=== PATIENT | male | born 1940 | race Caucasian/White ===

== ENCOUNTER 2022-08-01 09:53 | Emergency (ER) | payer MEDICARE ==
[2022-08-01 09:59] VITALS: TEMP 97.9
--- NOTE | 2022-08-01 10:10 | ED ---
General Adult HPI - General Chief complaint: Recheck/Abnormal Lab/Rx Stated complaint: Recheck Time Seen by Provider: 08/01/22 09:54 Source: patient, RN notes reviewed, old records reviewed Mode of arrival: ambulatory Limitations: no limitations - History of Present Illness Initial comments: 82-year-old male presents for evaluation of abnormal outpatient lab testing. Patient was told by the [facility] that his kidneys were failing and that he should present to the emergency department. He states this has been a known issue. He denies any specific complaints but states he has had some trouble urinating in the evenings and throughout the night. He denies vomiting. He's been eating and drinking well. No abdominal pain. No chest pain or dyspnea. - Related Data Allergies Allergy/AdvReac Type Severity Reaction Status Date / Time No Known Allergies Allergy Verified 08/01/22 09:59 Review of Systems ROS Statement: Those systems with pertinent positive or pertinent negative responses have been documented in the HPI. ROS Other: All systems not noted in ROS Statement are negative. Past Medical History Past Medical History: Prostate Disorder History of Any Multi-Drug Resistant Organisms: None Reported Past Surgical History: No Surgical Hx Reported Past Psychological History: No Psychological Hx Reported Smoking Status: Never smoker Past Alcohol Use History: Occasional Past Drug Use History: None Reported General Exam Limitations: no limitations General appearance: alert, in no apparent distress Head exam: Present: atraumatic, normocephalic Eye exam: Present: normal appearance, PERRL ENT exam: Present: normal exam Neck exam: Present: normal inspection. Absent: tenderness, meningismus Respiratory exam: Present: normal lung sounds bilaterally. Absent: respiratory distress, wheezes Cardiovascular Exam: Present: regular rate, normal rhythm GI/Abdominal exam: Present: soft. Absent: distended, tenderness, guarding Extremities exam: Present: normal inspection, normal capillary refill. Absent: pedal edema Neurological exam: Present: alert, oriented X3, CN II-XII intact. Absent: motor sensory deficit Psychiatric exam: Present: normal affect, normal mood Skin exam: Present: warm, dry, intact. Absent: cyanosis, diaphoretic Course Vital Signs 08/01/22 09:55 Temperature 97.9 F Pulse Rate 76 Respiratory 20 Rate Blood Pressure 126/65 O2 Sat by Pulse 98 Oximetry Medical Decision Making - Medical Decision Making Was pt. sent in by a medical professional or institution (Dr., PA, HALL DIRECTOR, urgent care, hospital, or senior care...) When possible be specific @ -Records obtained from the [place] Did you speak to anyone other than the patient for history (EMS, parent, family, police, friend...)? What history was obtained from this source @ -No Did you review nursing and triage notes (agree or disagree)? Why? @ -I reviewed and agree with nursing and triage notes Were old charts reviewed (outside hosp., previous admission, EMS record, old EKG, old radiological studies, urgent care reports/EKG's, senior care records)? Report findings @ -No old charts were reviewed Differential Diagnosis (chest pain, altered mental status, abdominal pain women, abdominal pain men, vaginal bleeding, weakness, fever, dyspnea, syncope, headache, dizziness, GI bleed, back pain, seizure, CVA, palpatations, mental health, musculoskeletal)? @ Renal failure, urinary obstruction, prostatic hypertrophy, prostate cancer EKG interpreted by me (3pts min.). @ -As above X-rays interpreted by me (1pt min.). @ -None done CT interpreted by me (1pt min.). @ -None done U/S interpreted by me (1pt. min.). @ -None done What testing was considered but not performed or refused? (CT, X-rays, U/S, labs)? Why? @ -None What meds were considered but not given or refused? Why? @ -None Did you discuss the management of the patient with other professionals (professionals i.e. FREDIS Barber, HALL DIRECTOR, lab, RT, psych nurse, social science instructor, machine sneller, teacher, public safety officer, case management assistant)? Give summary @ -No Was smoking cessation discussed for >3mins.? @ -No Was critical care preformed (if so, how long)? @ -No Were there social determinants of health that impacted care today? How? (Homelessness, low income, unemployed, alcoholism, drug addiction, transportation, low edu. Level, literacy, decrease access to med. care, snf, rehab)? @ -No Was there de-escalation of care discussed even if they declined (Discuss DNR or withdrawal of care, Hospice)? DNR status @ -No What co-morbidities impacted this encounter? (DM, HTN, Smoking, COPD, CAD, Cancer, CVA, ARF, Chemo, Hep., AIDS, mental health diagnosis, sleep apnea, morbid obesity)? @ Chronic kidney disease Was patient admitted / discharged? Hospital course, mention meds given and route, prescriptions, significant lab abnormalities, going to OR and other pertinent info. @ 82-year-old male presenting with elevated creatinine and BUN. Patient states he is also told that he may have a prostate issue. Bladder scan revealed approximately 1 L. Laboratory tests were repeated which did show an elevated BUN/creatinine with a creatinine of 3.2. I reviewed the previous lab testing from the [place] and this has been increasing over the past 6 months. Patient is eating and drinking well. He does not appear dehydrated. Additionally he has a anemia with a hemoglobin of 9.9. After Pina catheter insertion he has approximately 1 L of urinary output. He should have repeat laboratory testing performed within the next 1-2 weeks and he is given urology follow-up for urinary retention and concern for prostate issues. Undiagnosed new problem with uncertain prognosis? @ -No Drug Therapy requiring intensive monitoring for toxicity (Heparin, Nitro, Insulin, Cardizem)? @ -No Were any procedures done? @ -No Diagnosis/symptom? @ Urinary retention, chronic kidney disease Acute, or Chronic, or Acute on Chronic? @ -Chronic Uncomplicated (without systemic symptoms) or Complicated (systemic symptoms)? @ -Complicated Side effects of treatment? @ -No Exacerbation, Progression, or Severe Exacerbation? @ -No Poses a threat to life or bodily function? How? (Chest pain, [place], [place], pneumonia, PE, COPD, DKA, ARF, appy, cholecystitis, CVA, Diverticulitis, Homicidal, Kelsey cidal, threat to staff... and all critical care pts) @ -No - Lab Data Result diagrams: 08/01/22 10:11 08/01/22 10:11 Lab Results 08/01/22 08/01/22 Range/Units 10:11 10:11 WBC 4.5 (3.8-10.6) k/uL RBC 2.85 L (4.30-5.90) m/uL Hgb 9.7 L (13.0-17.5) gm/dL Hct 28.0 L (39.0-53.0) % MCV 98.4 (80.0-100.0) fL MCH 33.9 (25.0-35.0) pg MCHC 34.4 (31.0-37.0) g/dL RDW 12.4 (11.5-15.5) % Plt Count 148 L (150-450) k/uL MPV 7.6 Neutrophils % 72 % Lymphocytes % 18 % Monocytes % 6 % Eosinophils % 2 % Basophils % 0 % Neutrophils # 3.2 (1.3-7.7) k/uL Lymphocytes # 0.8 L (1.0-4.8) k/uL Monocytes # 0.3 (0-1.0) k/uL Eosinophils # 0.1 (0-0.7) k/uL Basophils # 0.0 (0-0.2) k/uL Sodium 141 (137-145) mmol/L Potassium 5.0 (3.5-5.1) mmol/L Chloride 107 (98-107) mmol/L Carbon Dioxide 24 (22-30) mmol/L Anion Gap 10 mmol/L BUN 45 H (9-20) mg/dL Creatinine 3.29 H (0.66-1.25) mg/dL Est GFR (CKD-EPI)AfAm 19 (>60 ml/min/1.73 sqM) Est GFR (CKD-EPI)NonAf 17 (>60 ml/min/1.73 sqM) Glucose 91 (74-99) mg/dL Calcium 9.1 (8.4-10.2) mg/dL Magnesium 2.7 H (1.6-2.3) mg/dL Total Bilirubin 0.5 (0.2-1.3) mg/dL AST 16 L (17-59) U/L ALT 12 (4-49) U/L Alkaline Phosphatase 47 (38-126) U/L Total Protein 7.2 (6.3-8.2) g/dL Albumin 4.3 (3.5-5.0) g/dL Disposition Clinical Impression: Urinary retention, Chronic kidney disease Disposition: HOME SELF-CARE Condition: Fair Instructions (If sedation given, give patient instructions): Urinary Retention in Men (ED), Chronic Kidney Disease (ED) Is patient prescribed a controlled substance at d/c from ED?: No Referrals: [facility],Clinic [Primary Care Provider] - 1-2 days Drew Bass MD [STAFF PHYSICIAN] - 1-2 days Time of Disposition: 12:02
[2022-08-01 10:51] LABS: Basophils % (A) 0 %; Eosinophils # (A) 0.1 k/uL (0-0.7); Eosinophils % (A) 2 %; HGB 9.7 gm/dL (13.0-17.5); Lymphocytes # (A) 0.8 k/uL (1.0-4.8); Lymphocytes % (A) 18 %; MCH 33.9 pg (25.0-35.0); MCHC 34.4 g/dL (31.0-37.0); MCV 98.4 fL (80.0-100.0); Mean Platelet Volume 7.6; Monocytes # (A) 0.3 k/uL (0-1.0); Monocytes % (A) 6 %; Neutrophils # (A) 3.2 k/uL (1.3-7.7); Neutrophils % (A) 72 %; Platelet Count 148 k/uL (150-450); RBC 2.85 m/uL (4.30-5.90); RDW 12.4 % (11.5-15.5); WBC 4.5 k/uL (3.8-10.6)
[2022-08-01 11:04] LABS: Albumin 4.3 g/dL (3.5-5.0); Calcium 9.1 mg/dL (8.4-10.2); Magnesium 2.7 mg/dL (1.6-2.3); Total Bilirubin 0.5 mg/dL (0.2-1.3); Total Protein 7.2 g/dL (6.3-8.2)
[2022-08-01] MEDS ORDERED: SODIUM CHLORIDE 0.9% 500 ML 500 ML IV ONE (11:20)
[2022-08-01] MEDS ORDERED: LIDOCAINE 2% URO-JET JELLY 5 ML KIT URETHRAL ONE (11:39)
[2022-08-01 13:20] VITALS: BP 142/69; PULSE 72; RESP 18
== END 2022-08-01 13:20 | disposition home or self-care (01) ==
LOC: EC 09:53
DX: N39.0 Urinary tract infection, site not specified (principal); N18.9 Chronic kidney disease, unspecified
CPT/HCPCS: 36415; 51798; 80053; 83735; 85025; 96360; 99283

== ENCOUNTER → 2022-09-01 | Outpatient (CLI) | payer OTHER ==
--- NOTE | 2022-09-01 22:21 | MR ---
EXAMINATION TYPE: MR Prostate wo/w con DATE OF EXAM: 09/01/2022 9:09 AM COMPARISON: . CLINICAL INDICATION:Male, 82 years old with history of R97.20; PH, TECHNIQUE: Multi-planar, multi-sequence imaging of the pelvis is performed prior to and following the uncomplicated administration of bolus intravenous gadolinium. CONTRAST: 7 Gadavist Interpretive Criteria: PI-RADS v2.1 SERUM PSA: 17.15 on 02/17/2021 11.64 on 08/12/2020 12.22 on 01/20/2020 12. 09 on 01/21/2019 10.23 on 07/22/2018 8.5 on 01/16/2018. 6.25 on 07/23/2017 SURGICAL PATHOLOGY: No data available. FINDINGS: Prostatic dimensions: 6.3 x 7.4 x 5.7 cm. Ellipsoid Volume:139.14 (PSA density=0.12 ng/mL/mL) CENTRAL GLAND (Central and Transition Zones/CZ+TZ): * Focus of high DWI/low ADC signal corresponding low T2 signal within the right mid central gland ba se measuring 10 mm PI-RADS 4 * Additional lesion measuring 6 x 3 mm focus within the right peripheral zone anterior mid gland wit h low T2 high DWI and low ADC signal. PI-RADS 4 PERIPHERAL ZONE (PZ): Present due to central gland hypertrophy changes. No evidence of masslike abnormality, or localized p erfusional hypervascularity, to further suggest a focus of clinically significant prostate cancer. (P I-RADS 2) SEMINAL VESICLES (SV): Symmetric and unremarkable. PERIPROSTATIC TISSUES: Unremarkable. LYMPH NODES: No enlarged pelvic lymph node. REMAINING PELVIS: Trabeculated bladder wall likely secondary to chronic bladder outlet obstruction. Pina catheter in place. No abnormal free or organized intrapelvic fluid collection. No pathologic bowel dilation or mural thickening. OSSEOUS STRUCTURES: No suspicious osseous abnormality. Peripherally low T1 and low T2 signal central high T2 signal left pubic symphysis lesion could represent degenerative changes versus cyst. No abnormal postcontrast enh ancement. IMPRESSION: 1. BI-RADS 4 lesions in the right central gland base measuring up to 10 mm and mid gland measuring u p to 6 x 3 mm. 2. Substantial BPH, estimated gland volume 139.14 mL. 3. Circumferential bladder wall thickening likely secondary to chronic bladder obstruction.
== END | disposition home or self-care (01) ==
LOC: RADMRIMAIN 07:35
PROVIDERS: ATTEND Urology
DX: N40.0 Benign prostatic hyperplasia without lower urinary tract symptoms (principal); R97.20 Elevated prostate specific antigen [PSA]; R91.8 Other nonspecific abnormal finding of lung field
CPT/HCPCS: 72197; A9585

== ENCOUNTER → 2022-09-26 | Outpatient (CLI) | payer OTHER ==
[2022-09-26 16:52] LABS: Appearance,Urine Turbid (Clear); Bacteria,Urine 3+ (None Seen); Bilirubin,Urine Negative (Negative); Blood,Urine Moderate (Negative); Color,Urine Yellow (Yellow); Ketones,Urine Trace (Negative); Nitrite,Urine Positive (Negative); PH, Urine 5.5; Specific Gravity,Urine 1.018 (1.001-1.030); Urobilinogen,Urine 0.2
[2022-09-26 16:53] LABS: Basophils # (A) 0.04 X 10*3/uL (0.00-0.10); Basophils % (A) 0.7 %; Eosinophils # (A) 0.32 X 10*3/uL (0.04-0.35); Eosinophils % (A) 5.9 %; HCT 31.2 % (39.6-50.0); HGB 10.1 d/dL (12.0-15.0); Lymphocytes # (A) 1.08 X 10*3/uL (0.90-5.00); MCH 31.7 pg (27.0-32.0); MCHC 32.4 d/dL (32.0-37.0); MCV 97.8 FL (80.0-97.0); Mean Platelet Volume 12.7 FL (9.5-12.2); Monocytes # (A) 0.47 X 10*3/uL (0.20-1.00); Monocytes % (A) 8.7 %; NRBC Per 100 WBC 0 X 10*3/uL (0.00-0.01); Neutrophils # (A) 3.47 X 10*3/uL (1.80-7.70); Neutrophils % (A) 64.3 %; Platelet Count 89 X 10*3/uL (140-440); RBC 3.19 X 10*6/uL (4.40-5.60); RDW 12.3 % (11.5-14.5)
[2022-09-26 16:57] LABS: BUN/Creat Ratio 12.52 Ratio (12.00-20.00); Blood Urea Nitrogen 26.3 mg/dL (9.0-27.0); Calcium 9.3 mg/dL (8.7-10.3); Carbon Dioxide 24.4 mmol/L (21.6-31.8); Chloride 108 mmol/L (96-109); Glucose 94 mg/dL (70-110); Potassium 4.9 mmol/L (3.5-5.5); Sodium 142 mmol/L (135-145)
== END | disposition home or self-care (01) ==
LOC: LABPAT 09:21
PROVIDERS: ATTEND Urology
DX: Z01.812 Encounter for preprocedural laboratory examination (principal); R97.20 Elevated prostate specific antigen [PSA]; R31.29 Other microscopic hematuria
CPT/HCPCS: 80048; 81001; 85025; 87077; 87086; 87186

== ENCOUNTER → 2023-03-30 | Outpatient (CLI) | payer OTHER ==
[2023-03-30 13:43] LABS: Appearance,Urine Turbid (Clear); Bacteria,Urine Occasional /hpf; Bilirubin,Urine Negative (Negative); Blood,Urine Small (Negative); Budding Yeast,Urine Moderate /hpf; Calcium Oxalate Crystals,Urine Moderate /hpf; Color,Urine Yellow; Glucose,Urine (UA) Negative (Negative); Ketones,Urine Negative (Negative); Leukocyte Esterase,Urine Large (Negative); Mucus,Urine Moderate /hpf; Nitrite,Urine Positive (Negative); Protein,Urine 2+ (Negative); RBC,Urine 22 /hpf (0-5); Specific Gravity,Urine 1.023 (1.001-1.035); Squamous Epithelial Cell,Urine 1 /hpf (0-4); Urobilinogen,Urine <2.0 mg/dL (<2.0); WBC,Urine 40 /hpf (0-5)
[2023-03-30 20:25] LABS: Basophils # (A) 0.04 X 10*3/uL (0.00-0.10); Basophils % (A) 0.7 %; Eosinophils # (A) 0.14 X 10*3/uL (0.04-0.35); Eosinophils % (A) 2.3 %; HCT 34.9 % (39.6-50.0); HGB 11.3 g/dL (13.0-17.0); Lymphocytes # (A) 1.47 X 10*3/uL (0.90-5.00); Lymphocytes % (A) 24.6 %; MCH 29.8 pg (27.0-32.0); MCHC 32.4 g/dL (32.0-37.0); MCV 92.1 FL (80.0-97.0); Mean Platelet Volume 12.6 FL (9.5-12.2); Monocytes # (A) 0.62 X 10*3/uL (0.20-1.00); Monocytes % (A) 10.4 %; NRBC Per 100 WBC 0 X 10*3/uL (0.00-0.01); Neutrophils # (A) 3.69 X 10*3/uL (1.80-7.70); Neutrophils % (A) 61.8 %; Platelet Count 140 X 10*3/uL (140-440); RBC 3.79 X 10*6/uL (4.40-5.60); WBC 5.97 X 10*3/uL (4.50-10.00)
[2023-03-31 01:05] LABS: BUN/Creat Ratio 15.73 Ratio (12.00-20.00); Blood Urea Nitrogen 34.6 mg/dL (9.0-27.0); Glucose 83 mg/dL (70-110)
[2023-03-31 01:06] LABS: Calcium 9.5 mg/dL (8.7-10.3); Carbon Dioxide 20.7 mmol/L (21.6-31.8); Chloride 106 mmol/L (96-109); Potassium 4.6 mmol/L (3.5-5.5); Sodium 140 mmol/L (135-145)
== END | disposition home or self-care (01) ==
LOC: LABPAT 12:09
PROVIDERS: ATTEND Urology
DX: Z01.812 Encounter for preprocedural laboratory examination (principal)
CPT/HCPCS: 36415; 80048; 81001; 85025; 86850; 86900; 86901; 87086

== ENCOUNTER 2023-04-05 05:36 | Day surgery (SDC) | payer OTHER ==
[2023-03-29 10:05] VITALS: BMI 26.3
--- NOTE | 2023-04-03 11:51 | P.HPIHPCON ---
History of Present Illness H&P Date: 04/03/23 Chief Complaint: BPH This is a 82 yo male with hx of 139 gram prostate. Patient has failed multiple trial of void. Option of robotic simple prostatectomy versus HoLEP was discussed with him in detail. He agreed to proceed with robotic simple prostatectomy. Aware of the risk which includes but not limited to bleeding, infection, urinary incontinence, erectile dysfunction, retrograde ejaculation, persistent retention. Risk of injury to nearby organs and risk of anesthesia was also discussed. He understood all risks and agree to proceed with robotic simple prostatectomy Consent for Procedure: I have explained the operation/procedure to the patient, including the risks, benefits, side effects, alternative therapies (including not receiving the proposed treatment or service), the likelihood of the patient achieving his/her goals, and potential recuperation problems for the procedure/sedation/analgesia, as well as any blood products, if indicated. I also explained to the patient the risks, benefits and side effects of the alternatives, as well as the risks related to not receiving the proposed procedure, care, treatment, or services. 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 History of Any Multi-Drug Resistant Organisms: None Reported Past Surgical History: Appendectomy Additional Past Surgical History / Comment(s): Appendectomy at 12 yrs old., prostate bx, hernia with mesh. Past Anesthesia/Blood Transfusion Reactions: No Reported Reaction Past Psychological History: Depression Additional Psychological History / Comment(s): states occasional depression- family not close. Smoking Status: Former smoker Past Alcohol Use History: None Reported Additional Past Alcohol Use History / Comment(s): quit smoking 1973, hx of less than a ppd, started in the service Past Drug Use History: None Reported - Past Family History Brother(s) Family Medical History: Cancer, Coronary Artery Disease (CAD), CVA/TIA Additional Family Medical History / Comment(s): prostate cancer age 67 Medications and Allergies Home Medications Medication Instructions Recorded Confirmed Type No Known Home Medications 03/29/23 03/29/23 History Allergies Allergy/AdvReac Type Severity Reaction Status Date / Time Penicillins Allergy Rash/Hives Verified 07/18/23 12:24 Surgical - Exam - General no distress, no pain - Eyes normal ocular movement, no pale - ENT normal nares, normal mucosa - Respiratory normal expansion, normal respiratory effort - Abdomen Abdomen: soft, non tender - Psychiatric oriented to time, oriented to person, oriented to place Assessment and Plan Assessment: OR for robotic simple prostatectomy
[~2023-04-05 05:36] MED LIST: CLINDAMYCIN 600 MG in DEXTROSE 5% IN WATER 50 ML IVPB PRN; DEXAMETHASONE SOD PHOSPHATE 4 MG/ML 1 ML VIAL IV ONE; GENTAMICIN 120 MG in SODIUM CHLORIDE 0.9% 100 ML IVPB PRN; LACTATED RINGERS 1,000 ML IV SCH; LIDOCAINE 1% (10MG/ML) FOR IV START INTRADERMA PRN; ONDANSETRON 4 MG/2 ML VIAL IVP ONE; droPERidol 5 MG/2 ML VIAL IVP ONE
[2023-04-05] MEDS ORDERED: HYDROmorphone 0.5 MG/0.5 ML SYRINGE IVP PRN (07:00)
[2023-04-05] MEDS ORDERED: MIDAZOLAM 2 MG/2 ML VIAL IVP ONE (07:16)
[2023-04-05] MEDS ORDERED: HYDROmorphone (PF) 1 MG/ML ONE (07:48)
[2023-04-05] MEDS ORDERED: DEXAMETHASONE SOD PHOSPHATE 4 MG/ML 1 ML VIAL ONE (07:48)
[2023-04-05] MEDS ORDERED: PROPOFOL 10 MG/ML 20 ML VIAL IV ONE (07:48)
[2023-04-05] MEDS ORDERED: GLYCOPYRROLATE 0.2 MG/ML 2 ML VIAL ONE (07:48)
[2023-04-05] MEDS ORDERED: SUCCINYLCHOLINE CHLORIDE 200 MG/10 ML VIAL IV ONE (07:48)
[2023-04-05] MEDS ORDERED: LIDOCAINE 1% INJ 10MG/ML (20 ML MDV) ONE (07:48)
[2023-04-05] MEDS ORDERED: fentaNYL (PF) 50 MCG/ML 2 ML AMP ONE (07:48)
[2023-04-05] MEDS ORDERED: ePHEDrine 50 MG/ML 1 ML VIAL ONE (07:48)
[2023-04-05] MEDS ORDERED: ROCURONIUM 10 MG/ML (5 ML VIAL) IV ONE (07:48)
[2023-04-05] MEDS ORDERED: NEOSTIGMINE 1 MG/ML 10 ML VIAL ONE (07:48)
[2023-04-05] MEDS ORDERED: SODIUM CHLORIDE 0.9% (PF) 10 ML VIAL ONE (07:48)
[2023-04-05] MEDS ORDERED: ROPIVACAINE 5 MG/ML 30 ML VIAL ONE (07:48)
[2023-04-05] MEDS ORDERED: BUPIVACAINE (PF) 0.25% 30 ML VIAL SQ ONE (07:53)
[2023-04-05] MEDS ORDERED: HYDROmorphone 1 MG/ML 1 ML SYRINGE IVP PRN (08:07)
[2023-04-05] MEDS ORDERED: ONDANSETRON 4 MG/2 ML VIAL IVP PRN (08:07)
[2023-04-05] MEDS ORDERED: LACTATED RINGERS 1,000 ML IV ONE (11:31)
--- NOTE | 2023-04-05 11:39 | P.OP ---
Date of Procedure: 04/05/23 Preoperative Diagnosis: BPH, urinary retention Postoperative Diagnosis: same Procedure(s) Performed: Robotic-assisted laparoscopic simple prostatectomy Implants: None Anesthesia: ALYSAA Surgeon: aPul Devlin Estimated Blood Loss (ml): 200 Pathology: other (Prostate adenoma) Condition: stable Disposition: PACU Indications for Procedure: This is a 82 yo male with hx of 139 gram prostate. Patient has failed multiple trial of void. Option of robotic simple prostatectomy versus HoLEP was discussed with him in detail. He agreed to proceed with robotic simple prostatectomy. Aware of the risk which includes but not limited to bleeding, infection, urinary incontinence, erectile dysfunction, retrograde ejaculation, persistent retention. Risk of injury to nearby organs and risk of anesthesia was also discussed. He understood all risks and agree to proceed with robotic simple prostatectomy Description of Procedure: After preoperative antibiotics were started, the patient was taken to the operating room. Anesthesia was induced and the patient was placed in a supine position with adequate padding of the pressure points, shoulders, back, legs and arms. He was then prepped and draped in the standard fashion. A critical pause was performed using two patient identifiers. A 16F vergara catheter was placed to gravity drainage. A pneumoperitoneum was obtained using a Veress needle, after pneumoperitoneum was obtained a 8 mm camera port was placed. Under direct vision a 8mm robotic ports was placed lateral to each rectus slightly below the camera port. The left iliac fossa 8mm port was placed. The right physiotherapist's assistant right iliac fossa 12mm port and right paramedian 5mm portwere placed. After the patient was placed in the trendelenberg position, the robot was then docked to the 8mm robotic ports and then each robotic arm and tower was checked in relation to the patient's legs and hands to avoid inadvertent compression. The peritoneal cavity was inspected. Adhesions were taken down along the left lower quadrant, patient also had adhesions along the right lower quadrant which also was taken down sharply. An inverted U-shaped incision began laterally to the left medial umbilical ligament and extended high across the midline to the right umbilical ligament. The limbs of the "U" extended to the level of the vasa on both sides. We next developed the preperitoneal space and the space of Retzius. Cautery was used to dissected the bladder away from the prostate, the incision was made in close proximity to the prostate, and incision was extended laterally and at this point the plane between the adenoma and the surgical capsule is identified. Both ureteral orifices were identified and neither was injured during the dissection . Of note patient had a significant medial lobe. The adenoma was dissected off of the capsule by combination of blunt dissection and minimum cautery. dissection was initially started along the anterior surface and posterior surface of adenoma, and this was carried laterally. The dissection was carried to the apex, at this point the urethral-prostatic junction was visualized and the prostate was transected at the junction. Prostate adenoma was placed in an endocatch bag . A 9and 9 inch 3-0 V-Lock suture was used to anastomose the urethra and bladder, starting at the 6:00 posterior position. Mucosa was secured in every stitch, to ensure a mucosa to mucosa anastomosis. The stitch was regularly cinched and the anastomosis tightened. . The 20 Fr Vergara catheter was advanced, the bladder filled, and the anastomosis was tested. Anastomsis was watertight at 150 mL. balloon was inflated to 10 mL the prostate surgical capsule was reapproximated to the bladder using 3-0V lock. cThe robot was undocked. specimen was extracted from the supraumbilical i ncision. The periumbilical fascia was closed with 1-0-PDS suture in figure of 8 fashion. All ports were closed with a subcuticular 4-0 monocryl and Dermabond. Sponge, instrument, and needle counts were correct at the end of the case x2. The patient tolerated the surgery well and without complication. He awoke without difficulty and was taken to the recovery room in stable condition
[2023-04-05] MEDS: SULFAMETHOX-TMP 800-160MG 1 EACH TAB PO SCH (15:23)
[2023-04-05] MEDS: KETOROLAC 15 MG/ML 1 ML VIAL IVP SCH ×3 (15:23→23:00)
[2023-04-05] MEDS: D5-0.45% NACL WITH KCL 20MEQ/L 1,000 ML IV SCH ×2 (16:03→22:59)
[2023-04-06] MEDS: D5-0.45% NACL WITH KCL 20MEQ/L 1,000 ML IV SCH (06:18)
[2023-04-06] MEDS: KETOROLAC 15 MG/ML 1 ML VIAL IVP SCH ×2 (06:21→13:09)
[2023-04-06 07:37] VITALS: RESP 18
[2023-04-06] MEDS: SULFAMETHOX-TMP 800-160MG 1 EACH TAB PO SCH (08:48)
[2023-04-06 14:10] VITALS: BP 137/68; PULSE 71; TEMP 98.2
--- NOTE | 2023-04-06 14:31 | P.DS ---
Providers Expected date of discharge: 04/06/23 Attending physician: Paul Devlin MD Primary care physician: [facility] Hospital Course: On the day of admission, the patient underwent an uncomplicated robotic-assisted laparoscopic simple prostatectomy. The perioperative course was unremarkable. Patient remained afebrile with stable vital signs. On the first postoperative day, examination revealed the abdomen to be soft and non-distended. Incisions were clean and dry. The Pina catheter was draining faintly blood-tinged urine. As the day progressed, the patient was able to ambulate without difficulty, and was tolerating diet. Procedures: Robotic-assisted laparoscopic simple prostatectomy on 04/05/2023. Patient Condition at Discharge: Good Plan - Discharge Summary Discharge Rx Participant: Yes New Discharge Prescriptions: New Ketorolac [Toradol] 10 mg PO Q6HR PRN #10 tab PRN Reason: Pain No Action Sulfamethoxazole/Trimethoprim [Bactrim DS 800-160 mg] 1 each PO DAILY Discharge Medication List Sulfamethoxazole/Trimethoprim [Bactrim DS 800-160 mg] 1 each PO DAILY 04/05/23 [History] Ketorolac [Toradol] 10 mg PO Q6HR PRN #10 tab 04/06/23 [Rx] Follow up Appointment(s)/Referral(s): Paul Devlin MD [STAFF PHYSICIAN] - 10 Days Activity/Diet/Wound Care/Special Instructions: Discharge home with Pina catheter. Please provide patient with an overnight drainage bag as well as a urinary leg bag, and instruct him on the use of both. Okay to shower. Diet as tolerated. No lifting, driving, or strenuous activity. Please reassure patient that it is common to experience the following: Hematuria, urinary leakage around the catheter, abdominal wall bruising, and penoscrotal swelling. Discharge Disposition: HOME SELF-CARE
--- NOTE | 2023-04-07 11:31 | P.ANPRN ---
Procedure Note - Anesthesia - Nerve Block Performed Bilateral Erector Spinae Single Time Out Performed: Yes Date of Procedure: 04/05/23 Procedure Start Time: Procedure Stop Time: Location of Patient: PreOp Indication: Acute Post-Operative Pain, Requested by Surgeon Sedation Type: Sedate with meaningful contact maintained Preparation: Sterile Prep Position: Prone Needle Types: Pajunk Needle Gauge: 21 Ultrasound used to visualize needle placement: Yes Ultrasound used to observe medication spread: Yes Blood Aspirated: No Pain Paresthesia on Injection Noted: No Resistance on Injection: Normal Image Stored and Saved: Yes Events: Uneventful and Well Tolerated (Ropivacaine 0.5% 15 mL plus dexamethasone 4 mg plus normal saline 10 mL given bilaterally at)
== END 2023-04-06 16:37 | disposition home or self-care (01) ==
LOC: OR 05:36 → 4SSUR 11:53 → OR 04-06 16:37
PROVIDERS: ATTEND Urology
DX: N40.1 Benign prostatic hyperplasia with lower urinary tract symptoms (principal); R33.8 Other retention of urine; N41.1 Chronic prostatitis; Z90.79 Acquired absence of other genital organ(s)
CPT/HCPCS: 55867; 64999; 86900; 86901; 86850; 88307; J2250; J0330; J1100; J2710; J2405; J2001; J3010; J1580; J1170 ×2; J2795; J1885 ×2; J2704; J0736; J0665

== ENCOUNTER 2023-11-28 14:46 | Emergency (ER) | payer OTHER ==
[2023-11-28 14:58] VITALS: TEMP 98.4
--- NOTE | 2023-11-28 16:16 | US ---
EXAMINATION TYPE: US scrotum with doppler. Grayscale and color Doppler Duplex imaging performed of benjamin bryan scrotum. DATE OF EXAM: 11/28/2023 COMPARISON: NONE CLINICAL INDICATION: Male, 83 years old with history of swelling R testical; Pt states right testicle swelling EXAM MEASUREMENTS: TESTICLES: Right Testicle: 4.0 x 2.3 x 2.5 cm Left Testicle: 3.7 x 1.8 x 2.5 cm EPIDIDYMIS HEAD: Right Epididymis: 1.9 cm Left Epididymis: 1.0 cm Doppler performed to assess for testicular vascularity; good bilateral color flow and waveforms are s een. There is no evidence of testicular torsion. Presence of hydroceles: Loculated fluid surrounding right testicle Presence of varicoceles: No Right epididymis enlarged and hypervascular IMPRESSION: 1. Right epididymitis, orchitis also likely. 2. No evidence for testicular torsion. 3. No evidence for testicular mass.
--- NOTE | 2023-11-28 16:41 | ED ---
Abdominal Pain HPI - General Chief Complaint: Abdominal Pain Stated Complaint: Urogenital Time Seen by Provider: 11/28/23 16:40 Source: patient, RN notes reviewed Mode of arrival: ambulatory Limitations: no limitations - History of Present Illness Initial Comments: 83-year-old male presenting to the ER with chief complaint of right testicular swelling x 1 week with difficulty voiding. States over the past week he has felt the urge to urinate, however only is urinating and very small amounts. Last time he has urinated was 10 PM last night. He has a history of prostate surgeries, states he had a Vergara catheter for 7 months last year. Denies fever, chills, vomiting. - Related Data Home Medications Medication Instructions Recorded Confirmed Sulfamethoxazole/Trimethoprim 1 each PO DAILY 04/05/23 04/05/23 [Bactrim DS 800-160 mg] Previous Rx's Medication Instructions Recorded Ketorolac [Toradol] 10 mg PO Q6HR PRN #10 tab 04/06/23 Levofloxacin [Levaquin] 500 mg PO DAILY 7 Days #7 tab 11/28/23 Allergies Allergy/AdvReac Type Severity Reaction Status Date / Time Penicillins Allergy Rash/Hives Verified 11/28/23 14:58 Review of Systems ROS Statement: Those systems with pertinent positive or pertinent negative responses have been documented in the HPI. ROS Other: All systems not noted in ROS Statement are negative. 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 History of Any Multi-Drug Resistant Organisms: None Reported Past Surgical History: Appendectomy Additional Past Surgical History / Comment(s): Appendectomy at 12 yrs old., prostate bx, hernia with mesh. Past Anesthesia/Blood Transfusion Reactions: No Reported Reaction Past Psychological History: Depression Smoking Status: Former smoker Past Alcohol Use History: None Reported Past Drug Use History: None Reported - Past Family History Brother(s) Additional Family Medical History / Comment(s): bypass surg at age 43 General Exam Limitations: no limitations General appearance: alert, in no apparent distress Head exam: Present: atraumatic, normocephalic, normal inspection Eye exam: Present: normal appearance, PERRL, EOMI. Absent: scleral icterus, conjunctival injection, periorbital swelling Respiratory exam: Present: normal lung sounds bilaterally. Absent: respiratory distress, wheezes, rales, rhonchi, stridor Cardiovascular Exam: Present: regular rate, normal rhythm, normal heart sounds. Absent: systolic murmur, diastolic murmur, rubs, gallop, clicks GI/Abdominal exam: Present: soft, normal bowel sounds. Absent: distended, tenderness, guarding, rebound, rigid Neurological exam: Present: alert, oriented X3 Psychiatric exam: Present: normal affect, normal mood Skin exam: Present: warm, dry, intact, normal color. Absent: rash Course Vital Signs 11/28/23 14:55 Temperature 98.4 F Pulse Rate 82 Respiratory 20 Rate Blood Pressure 155/85 O2 Sat by Pulse 95 Oximetry Medical Decision Making - Medical Decision Making Was pt. sent in by a medical professional or institution (, PA, SCHOOL AIDE, urgent ca re, hospital, or snf...) When possible be specific @ -No Did you speak to anyone other than the patient for history (EMS, parent, family, police, friend...)? What history was obtained from this source @ -No Did you review nursing and triage notes (agree or disagree)? Why? @ -I reviewed and agree with nursing and triage notes Were old charts reviewed (outside hosp., previous admission, EMS record, old EKG, old radiological studies, urgent care reports/EKG's, snf records)? Report findings @ -No old charts were reviewed Differential Diagnosis (chest pain, altered mental status, abdominal pain women, abdominal pain men, vaginal bleeding, weakness, fever, dyspnea, syncope, headache, dizziness, GI bleed, back pain, seizure, CVA, palpatations, mental health, musculoskeletal)? @ -Differential Abdominal Pain Men: Appendicitis, cholecystitis, diverticulosis, ischemic bowel, pancreatitis, hepatitis, UTI, gastroenteritis, AAA, incarcerated hernia, bowel obstruction, constipation, inflammatory bowel, hepatitis, peptic ulcer disease, splenic infarction, perforated viscus, testicular torsion, this is not meant to be an all-inclusive list EKG interpreted by me (3pts min.). @ -None X-rays interpreted by me (1pt min.). @ -None done CT interpreted by me (1pt min.). @ -None done U/S interpreted by me (1pt. min.). @ -Ultrasound reveals right epididymitis, orchitis also likely, no evidence for torsion, no testicular masses What testing was considered but not performed or refused? (CT, X-rays, U/S, labs)? Why? @ -None What meds were considered but not given or refused? Why? @ -None Did you discuss the management of the patient with other professionals (professionals i.e. DrBenita, PA, SCHOOL AIDE, lab, RT, psych nurse, social work administrator, electric motor control assembler, teacher, textile technical officer, egg caser)? Give summary @ -No Was smoking cessation discussed for >3mins.? @ -No Was critical care preformed (if so, how long)? @ -No Were there social determinants of health that impacted care today? How? (Homele ssness, low income, unemployed, alcoholism, drug addiction, transportation, low edu. Level, literacy, decrease access to med. care, retirement, rehab)? @ -No Was there de-escalation of care discussed even if they declined (Discuss DNR or withdrawal of care, Hospice)? DNR status @ -No What co-morbidities impacted this encounter? (DM, HTN, Smoking, COPD, CAD, Cancer, CVA, ARF, Chemo, Hep., AIDS, mental health diagnosis, sleep apnea, morbid obesity)? @ -None Was patient admitted / discharged? Hospital course, mention meds given and route, prescriptions, significant lab abnormalities, going to OR and other pertinent info. @ -Patient was discharged. This is an 83-year-old male presenting with right testicular pain x 1 week with difficulty voiding. No red flag symptoms. Vitals within normal limits. Bladder scan reveals 112 mL. Urinalysis revealed 46 white blood cells. Ultrasound revealed right epididymitis and orchitis, no evidence for torsion or testicular masses. Discussed findings with patient. Discussed diagnosis of epididymitis and UTI. Will treat with levofloxacin for 10 days, patient advised to follow-up with Dr. Devlin in 1 week. Return precautions discussed and patient is agreeable to plan. Case discussed with my ED attending Dr. Mary. Patient discharged stable condition. Undiagnosed new problem with uncertain prognosis? @ -No Drug Therapy requiring intensive monitoring for toxicity (Heparin, Nitro, Insulin, Cardizem)? @ -No Were any procedures done? @ -No Diagnosis/symptom? @ -Right epididymitis, UTI Acute, or Chronic, or Acute on Chronic? @ -Acute Uncomplicated (without systemic symptoms) or Complicated (systemic symptoms)? @ -Uncomplicated Side effects of treatment? @ -No Exacerbation, Progression, or Severe Exacerbation? @ -No Poses a threat to life or bodily function? How? (Chest pain, USA, VT, pneumonia, PE, COPD, DKA, ARF, appy, cholecystitis, CVA, Diverticulitis, Homicidal, Suicidal, threat to staff... and all critical care pts) @ -No - Lab Data Lab Results 11/28/23 Range/Units 17:14 Urine Color Yellow Urine Appearance Turbid (Clear) Urine pH 5.5 (5.0-8.0) Ur Specific [place] 1.021 (1.001-1.035) Urine Protein Trace H (Negative) Urine Glucose (UA) Negative (Negative) Urine Ketones Negative (Negative) Urine Blood Small H (Negative) Urine Nitrite Negative (Negative) Urine Bilirubin Negative (Negative) Urine Urobilinogen <2.0 (<2.0) mg/dL Ur Leukocyte Esterase Large H (Negative) Urine RBC 4 (0-5) /hpf Urine WBC 46 H (0-5) /hpf Ur Squamous Epith Cells <1 (0-4) /hpf Urine Bacteria Rare H (None) /hpf Urine Mucus Rare H (None) /hpf Disposition Clinical Impression: Acute epididymitis, Urinary tract infection Disposition: HOME SELF-CARE Condition: Stable Instructions (If sedation given, give patient instructions): Epididymo-Orchitis (ED), Urinary Tract Infection in Men (ED) Additional Instructions: Follow-up with Dr. Devlin in 1 week. Take levofloxacin once daily for 10 days. Please return to the Emergency Department if symptoms worsen or any other concerns. Prescriptions: Levofloxacin [Levaquin] 500 mg PO DAILY 7 Days #7 tab Is patient prescribed a controlled substance at d/c from ED?: No Referrals: Jim Stewart DO [Primary Care Provider] - 1-2 days Time of Disposition: 18:36
[2023-11-28 18:14] LABS: Appearance,Urine Turbid (Clear); Bacteria,Urine Rare /hpf; Bilirubin,Urine Negative (Negative); Blood,Urine Small (Negative); Color,Urine Yellow; Glucose,Urine (UA) Negative (Negative); Ketones,Urine Negative (Negative); Leukocyte Esterase,Urine Large (Negative); Mucus,Urine Rare /hpf; Nitrite,Urine Negative (Negative); PH, Urine 5.5 (5.0-8.0); Protein,Urine Trace (Negative); RBC,Urine 4 /hpf (0-5); Specific Gravity,Urine 1.021 (1.001-1.035); Squamous Epithelial Cell,Urine <1 /hpf (0-4); Urobilinogen,Urine <2.0 mg/dL (<2.0); WBC,Urine 46 /hpf (0-5)
[2023-11-28 19:07] VITALS: BP 136/67; PULSE 60; RESP 16
== END 2023-11-28 19:06 | disposition home or self-care (01) ==
LOC: EC 14:46
CPT/HCPCS: 51798; 76870; 81001; 87086; 93975; 99284